=== PATIENT | female | born 1980 | race African-American/Black ===

== ENCOUNTER 2022-03-08 11:47 | Inpatient (IN) | payer OTHER ==
[~2022-03-08] VITALS: Ht 167.6 cm; Wt 66.7 kg
[2022-03-08] MEDS ORDERED: ACETAMINOPHEN 325MG TABLET PO PRN ×2 (16:15→22:45)
[2022-03-08 17:00] LABS: BASOPHILS % 0.3 % (0.0-2.0); HEMATOCRIT. 22.4 % (36.0-48.0); LYMPHOCYTES % 18.5 % (20.0-50.0); MEAN CORPUSCULAR HEMOGLOBIN 20.7 pg (28.0-32.0); MEAN PLATELET VOLUME 7.1 fl (7.4-10.4); MONOCYTES % 6.7 % (2.0-8.0); NEUTROPHILS % 73.5 % (40.0-76.0); PLATELET 274 x1000/uL (130-400); RED BLOOD CELL COUNT 3.39 mill/uL (4.2-5.4); RED CELL DISTRIBUTION WIDTH 19.3 % (11.6-14.6)
[2022-03-08 17:05] LABS: CHLORIDE 105 mEq/L (98-107)
[2022-03-08 17:30] LABS: B-HCG QUANTITATIVE 8042 mIU/mL (<3)
[2022-03-08 18:11] LABS: PLATELET ESTIMATE NORMAL
[2022-03-08] MEDS ORDERED: ONDANSETRON HCL 4MG/2ML INJ IV NR (21:30)
[2022-03-08] MEDS ORDERED: PANTOPRAZOLE SODIUM 40 MG/VIAL IV NR (21:30)
[2022-03-08] MEDS ORDERED: SODIUM CHLORIDE 0.9% 1,000 ML IV ONE (21:30)
[2022-03-08] MEDS ORDERED: POTASSIUM CHLORIDE INJ 40 MEQ in DEXT 5% WATER 250 ML IV ONE (22:45)
[2022-03-08] MEDS ORDERED: MAGNESIUM/ALUMINUM HYDROXIDE/SIMETHICONE 30ML UDC PO PRN (22:45)
[2022-03-08] MEDS ORDERED: LORAZEPAM 2MG/ML CPJ IV PRN (22:45)
[2022-03-08] MEDS ORDERED: GUAIFENESIN 200MG/10ML SUGAR FREE UDC PO PRN (22:45)
[2022-03-08] MEDS ORDERED: KCL 20MEQ/100ML X 2 FOR TOTAL KCL 40MEQ/200ML IV SCH (23:00)
[2022-03-08 23:09] LABS: TOTAL IRON BINDING CAPACITY 445 ug/dL (250-450)
[2022-03-08] MEDS ORDERED: DEXT 5%/0.45% NACL KCL 10MEQ/L 1,000 ML IV SCH (23:59)
[2022-03-09] MEDS: IRON SUCROSE COMPLEX 100 MG/5 ML ML IV SCH ×2 (02:00→22:59)
[2022-03-09] MEDS ORDERED: POTASSIUM CHLORIDE 20MEQ TABLET SR PO NR ×2 (04:30→14:00)
[2022-03-09] MEDS ORDERED: DIPHENHYDRAMINE 50MG/ML VIAL IV NR (05:30)
[2022-03-09] MEDS ORDERED: ONDANSETRON HCL 4MG/2ML INJ IV NR (05:30)
[2022-03-09] MEDS: ONDANSETRON HCL 4MG/2ML INJ IV PRN (06:09)
[2022-03-09] MEDS: DIPHENHYDRAMINE 50MG/ML VIAL IV PRN (06:09)
[2022-03-09 08:03] LABS: CHLORIDE 107 mEq/L (98-107)
[2022-03-09 08:08] LABS: BASOPHILS % 0.3 % (0.0-2.0); EOSINOPHILS % 0.8 % (0.0-5.0); HEMATOCRIT. 21.5 % (36.0-48.0); LYMPHOCYTES % 15.1 % (20.0-50.0); MEAN CORPUSCULAR HEMOGLOBIN 21.9 pg (28.0-32.0); MEAN CORPUSCULAR VOLUME 67.9 fL (81.0-99.0); MEAN PLATELET VOLUME 6.9 fl (7.4-10.4); MONOCYTES % 8.8 % (2.0-8.0); PLATELET 227 x1000/uL (130-400); RED BLOOD CELL COUNT 3.17 mill/uL (4.2-5.4); RED CELL DISTRIBUTION WIDTH 20.8 % (11.6-14.6)
[2022-03-09 08:11] LABS: PHOSPHORUS 2.5 mg/dL (2.5-4.9)
[2022-03-09 12:00] VITALS: BP 97/63
[2022-03-09 12:20] VITALS: BP 91/58
[2022-03-09 14:59] LABS: FERRITIN 5 ng/mL (10-291)
[2022-03-09 15:11] LABS: VITAMIN B12 SERUM 425 pg/mL (211-911)
[2022-03-09 16:00] VITALS: BP 92/46
[2022-03-09] MEDS: DEXT 5%/0.45% NACL KCL 10MEQ/L 1,000 ML IV SCH ×2 (16:06→22:00)
[2022-03-09 20:00] VITALS: BP 94/50
[2022-03-09] MEDS: FAMOTIDINE 20MG/2ML VIAL IV SCH (21:00)
[2022-03-09] MEDS: ACETAMINOPHEN 325MG TABLET PO PRN (22:57)
[2022-03-10] VITALS (10 sets, daily range): BP systolic 81–113; BP diastolic 44–69
[2022-03-10] MEDS: ONDANSETRON HCL 4MG/2ML INJ IV PRN ×3 (00:18→17:51)
[2022-03-10] MEDS: FAMOTIDINE 20MG/2ML VIAL IV SCH ×2 (00:58→21:16)
[2022-03-10] MEDS: FOLIC ACID 1 MG, THIAMINE HCL 100 MG, MVI, ADULT NO.1 10 ML in DEXTROSE 5% WATER 1,000 ML IV SCH ×4 (05:06)
[2022-03-10 07:58] LABS: BASOPHILS % 0.3 % (0.0-2.0); EOSINOPHILS % 1.3 % (0.0-5.0); HEMATOCRIT. 23.9 % (36.0-48.0); HEMOGLOBIN. 7.8 g/dL (12.0-16.0); LYMPHOCYTES % 16.9 % (20.0-50.0); MEAN CORPUSCULAR HEMOGLOBIN 22.7 pg (28.0-32.0); MEAN CORPUSCULAR VOLUME 69.7 fL (81.0-99.0); MEAN PLATELET VOLUME 7.3 fl (7.4-10.4); MONOCYTES % 9.9 % (2.0-8.0); NEUTROPHILS % 71.6 % (40.0-76.0); PLATELET 236 x1000/uL (130-400); RED BLOOD CELL COUNT 3.43 mill/uL (4.2-5.4); RED CELL DISTRIBUTION WIDTH 22.2 % (11.6-14.6)
[2022-03-10 08:14] LABS: CHLORIDE 110 mEq/L (98-107)
[2022-03-10] MEDS ORDERED: POTASSIUM CHLORIDE 20MEQ/PACKET PO SCH (10:00)
[2022-03-10] MEDS: DEXT 5%/0.45% NACL KCL 10MEQ/L 1,000 ML IV SCH ×3 (13:35→23:28)
[2022-03-10] MEDS ORDERED: METOCLOPRAMIDE HCL 10MG/2ML VIAL IV PRN (15:15)
[2022-03-10] MEDS: DIPHENHYDRAMINE 50MG/ML VIAL IV PRN ×2 (15:37→21:16)
[2022-03-10] MEDS: DOCUSATE SODIUM 100MG CAPSULE PO SCH (17:42)
[2022-03-10] MEDS: SENNOSIDES 8.6MG TABLET PO SCH (21:00)
[2022-03-10] MEDS: IRON SUCROSE COMPLEX 100 MG/5 ML ML IV SCH (23:34)
[2022-03-11] VITALS: BP 105/65
[2022-03-11] MEDS: ONDANSETRON HCL 4MG/2ML INJ IV PRN (01:21)
[2022-03-11] MEDS: ACETAMINOPHEN 325MG TABLET PO PRN ×3 (01:21→23:29)
[2022-03-11] MEDS: FOLIC ACID 1 MG, THIAMINE HCL 100 MG, MVI, ADULT NO.1 10 ML in DEXTROSE 5% WATER 1,000 ML IV SCH ×4 (05:16)
[2022-03-11] MEDS: DEXT 5%/0.45% NACL KCL 10MEQ/L 1,000 ML IV SCH ×3 (05:16→21:15)
[2022-03-11 07:21] LABS: BASOPHILS % 0.2 % (0.0-2.0); EOSINOPHILS % 1.2 % (0.0-5.0); HEMATOCRIT. 25.1 % (36.0-48.0); LYMPHOCYTES % 13.8 % (20.0-50.0); MEAN CORPUSCULAR HEMOGLOBIN 22.4 pg (28.0-32.0); MEAN PLATELET VOLUME 7.2 fl (7.4-10.4); MONOCYTES % 6.1 % (2.0-8.0); NEUTROPHILS % 78.7 % (40.0-76.0); PLATELET 265 x1000/uL (130-400); RED BLOOD CELL COUNT 3.59 mill/uL (4.2-5.4); RED CELL DISTRIBUTION WIDTH 21.5 % (11.6-14.6)
[2022-03-11 07:24] LABS: CHLORIDE 107 mEq/L (98-107)
[2022-03-11 08:00] VITALS: BP 89/52
[2022-03-11] MEDS: DOCUSATE SODIUM 100MG CAPSULE PO SCH ×2 (08:13→17:00)
[2022-03-11] MEDS: ONDANSETRON HCL 4MG/2ML INJ IV SCH ×4 (08:14→23:30)
[2022-03-11] MEDS: FAMOTIDINE 20MG/2ML VIAL IV SCH ×2 (08:14→20:05)
[2022-03-11] MEDS: POTASSIUM CHLORIDE 20MEQ/PACKET PO SCH ×2 (08:15→14:00)
[2022-03-11] MEDS: DIPHENHYDRAMINE 50MG/ML VIAL IV PRN ×2 (10:46→20:05)
[2022-03-11 12:00] VITALS: BP 108/64
[2022-03-11] MEDS ORDERED: BISACODYL 10MG SUPP PR SCH (13:00)
[2022-03-11 16:00] VITALS: BP 105/65
[2022-03-11] MEDS ORDERED: POTASSIUM CHLORIDE INJ 40 MEQ in DEXT 5% WATER 500 ML IV ONE (19:15)
[2022-03-11 20:00] VITALS: BP 97/61
[2022-03-11] MEDS ORDERED: IRON SUCROSE COMPLEX 100 MG/5 ML ML IV SCH (20:00)
[2022-03-11] MEDS: KCL 20MEQ/100ML X 2 FOR TOTAL KCL 40MEQ/200ML IV SCH ×2 (20:09→22:00)
[2022-03-11] MEDS: SENNOSIDES 8.6MG TABLET PO SCH (21:00)
[2022-03-12] VITALS: BP 101/52
[2022-03-12] MEDS: DIPHENHYDRAMINE 50MG/ML VIAL IV PRN ×2 (01:31→09:04)
[2022-03-12] MEDS: FOLIC ACID 1 MG, THIAMINE HCL 100 MG, MVI, ADULT NO.1 10 ML in DEXTROSE 5% WATER 1,000 ML IV SCH ×4 (04:00)
[2022-03-12] MEDS: ONDANSETRON HCL 4MG/2ML INJ IV SCH ×2 (06:20→15:31)
[2022-03-12 08:00] VITALS: BP 125/92
[2022-03-12 08:56] LABS: BASOPHILS % 0.5 % (0.0-2.0); EOSINOPHILS % 1.9 % (0.0-5.0); HEMATOCRIT. 25.1 % (36.0-48.0); LYMPHOCYTES % 17.6 % (20.0-50.0); MEAN CORPUSCULAR HEMOGLOBIN 22.3 pg (28.0-32.0); MEAN CORPUSCULAR VOLUME 70.4 fL (81.0-99.0); MEAN PLATELET VOLUME 7.2 fl (7.4-10.4); MONOCYTES % 7.4 % (2.0-8.0); NEUTROPHILS % 72.6 % (40.0-76.0); PLATELET 283 x1000/uL (130-400); RED BLOOD CELL COUNT 3.56 mill/uL (4.2-5.4)
[2022-03-12] MEDS: DOCUSATE SODIUM 100MG CAPSULE PO SCH (09:00)
[2022-03-12] MEDS: FAMOTIDINE 20MG/2ML VIAL IV SCH (09:05)
[2022-03-12 09:30] LABS: CHLORIDE 108 mEq/L (98-107)
[2022-03-12] MEDS ORDERED: IRON SUCROSE COMPLEX 100 MG/5 ML ML IV ONE (11:00)
[2022-03-12] MEDS ORDERED: POTASSIUM CHLORIDE 20MEQ TABLET SR PO NR ×2 (11:00→13:00)
[2022-03-12 12:00] VITALS: BP 101/64
[2022-03-12] MEDS: DEXT 5%/0.45% NACL KCL 10MEQ/L 1,000 ML IV SCH (14:00)
[2022-03-12] MEDS ORDERED: IRON SUCROSE COMPLEX 100 MG/5 ML ML IV NR (14:15)
[2022-03-12 15:50] VITALS: BP 101/64
== END 2022-03-12 16:12 | disposition home or self-care (01) | DRG 832 ==
LOC: ER 11:47 → MICUSO 21:34 → EDBEDREQTM 21:36 → EDBEDREQ 21:36 → 6EST 03-09 12:15
PROVIDERS: ADMIT Internal Medicine; ATTEND Internal Medicine
PROC: 30233N1 Transfusion of Nonautologous Red Blood Cells into Peripheral Vein, Percutaneous Approach (ICD-10-PCS; principal; 2022-03-09)
DX: O99.013 Anemia complicating pregnancy, third trimester (principal); O26.613 Liver and biliary tract disorders in pregnancy, third trimester; D50.9 Iron deficiency anemia, unspecified; K29.00 Acute gastritis without bleeding; D25.9 Leiomyoma of uterus, unspecified; Z3A.32 32 weeks gestation of pregnancy; Z20.822 Contact with and (suspected) exposure to COVID-19; O21.2 Late vomiting of pregnancy; E86.0 Dehydration; K21.9 Gastro-esophageal reflux disease without esophagitis; O99.613 Diseases of the digestive system complicating pregnancy, third trimester; O21.0 Mild hyperemesis gravidarum; O99.843 Bariatric surgery status complicating pregnancy, third trimester; K80.20 Calculus of gallbladder without cholecystitis without obstruction; E87.6 Hypokalemia; O99.283 Endocrine, nutritional and metabolic diseases complicating pregnancy, third trimester; Z83.3 Family history of diabetes mellitus
CPT/HCPCS: 36415; 76700; 76805; 80048; 80053; 80076; 82607; 82728; 82746; 83540; 83550; 83735; 83880; 84100; 84702; 85018; 85025; 85044; 85379; 86850; 86900; 86920; 87426; 93005; 93970; 99285; C9113; C9803; J1200; J2405; J3411; J3480; J3490; J7070; P9016

== ENCOUNTER 2022-03-26 12:23 | Inpatient (IN) | payer OTHER ==
[~2022-03-26] VITALS: Ht 152.4 cm; Wt 65.8 kg
[2022-03-26] MEDS ORDERED: DEXT 5%/LACTATED RINGERS 1,000 ML IV ONE (13:15)
[2022-03-26] MEDS ORDERED: ONDANSETRON HCL 4MG/2ML INJ IV NR (13:15)
[2022-03-26 15:41] LABS: CLARITY URINE TURBID (CLEAR); COLOR URINE DARK YELLOW (YELLOW); KETONES URINE 4+ (NEGATIVE); LEUKOCYTE ESTERASE URINE 1+ (NEGATIVE); NITRITE URINE NEGATIVE (NEGATIVE); OCCULT BLOOD URINE NEGATIVE (NEGATIVE); PROTEIN URINE 1+ (NEGATIVE)
[2022-03-26] MEDS ORDERED: FAMOTIDINE 20MG/2ML VIAL IV NR (16:15)
[2022-03-26 17:19] LABS: BASOPHILS % 0.5 % (0.0-2.0); EOSINOPHILS % 1.6 % (0.0-5.0); HEMATOCRIT. 27.1 % (36.0-48.0); HEMOGLOBIN. 8.8 g/dL (12.0-16.0); LYMPHOCYTES % 13.5 % (20.0-50.0); MEAN CORPUSCULAR HEMOGLOBIN 23.8 pg (28.0-32.0); MEAN CORPUSCULAR VOLUME 73.2 fL (81.0-99.0); MEAN PLATELET VOLUME 7.8 fl (7.4-10.4); MONOCYTES % 5.8 % (2.0-8.0); NEUTROPHILS % 78.6 % (40.0-76.0); PLATELET 292 x1000/uL (130-400); RED BLOOD CELL COUNT 3.71 mill/uL (4.2-5.4); RED CELL DISTRIBUTION WIDTH 28.9 % (11.6-14.6)
[2022-03-26] MEDS: ONDANSETRON HCL 4MG/2ML INJ IV SCH ×2 (18:12→23:45)
[2022-03-26] MEDS: DIPHENHYDRAMINE 50MG/ML VIAL IV PRN (18:18)
[2022-03-26] MEDS: POTASSIUM CHLORIDE 20MEQ TABLET SR PO SCH (18:25)
[2022-03-26] MEDS ORDERED: METOCLOPRAMIDE HCL 10MG/2ML VIAL IV NR (19:30)
[2022-03-26] MEDS: DEXT 5%/LACTATED RINGERS 1,000 ML IV SCH (19:37)
[2022-03-26 19:54] LABS: PLATELET ESTIMATE NORMAL
[2022-03-26] MEDS: DOCUSATE SODIUM 100MG CAPSULE PO SCH (21:47)
[2022-03-26] MEDS: GUAIFENESIN-DM 200MG-20MG/10ML UDC PO PRN (21:47)
[2022-03-27] MEDS: DIPHENHYDRAMINE 50MG/ML VIAL IV PRN (00:59)
[2022-03-27] MEDS: METOCLOPRAMIDE HCL 10MG/2ML VIAL IV SCH ×2 (00:59→06:48)
[2022-03-27] MEDS: POTASSIUM CHLORIDE 20MEQ TABLET SR PO SCH ×2 (00:59→06:43)
[2022-03-27] MEDS: GUAIFENESIN-DM 200MG-20MG/10ML UDC PO PRN ×2 (01:47→06:57)
[2022-03-27] MEDS: DEXT 5%/LACTATED RINGERS 1,000 ML IV SCH (04:20)
[2022-03-27 08:10] LABS: CHLORIDE 107 mEq/L (98-107)
[2022-03-27] MEDS: DOCUSATE SODIUM 100MG CAPSULE PO SCH (09:10)
== END 2022-03-27 14:35 | disposition home or self-care (01) | DRG 833 ==
LOC: 8 EST A/PP 12:23 → OBSVTOIN 12:23
PROVIDERS: ADMIT Obstetrics & Gynecology; ATTEND Obstetrics & Gynecology
DX: O21.1 Hyperemesis gravidarum with metabolic disturbance (principal); O99.013 Anemia complicating pregnancy, third trimester; O99.283 Endocrine, nutritional and metabolic diseases complicating pregnancy, third trimester; Z3A.30 30 weeks gestation of pregnancy; D64.9 Anemia, unspecified; K21.9 Gastro-esophageal reflux disease without esophagitis; O99.613 Diseases of the digestive system complicating pregnancy, third trimester; Z20.822 Contact with and (suspected) exposure to COVID-19
CPT/HCPCS: 36415; 76805; 76818; 80051; 80053; 81003; 85025; 87426; 96360; 96361; 99281; G0378; J1200; J2405; J2765; J3490